=== PATIENT | male | born 1990 | race Two or more races ===

== ENCOUNTER 2024-06-17 11:27 | Outpatient (REF) | payer OTHER, SELFPAY ==
[2024-06-17 12:54] LABS: MANUAL DIFF FLAG NO
--- OUTSIDE RECORDS SUMMARY | 2024-06-17 12:59 | XMS_ITS | Encounter Summary ---
Author Organization [facility] Address [address] [place] [address] Phone Care Team Providers Care Fabric And Accessories Estimator Name Role Phone Martha Diaz MD Primary Care Provider Encounter Details Date Type Department Care Team (Late st Contact Info) Description 10/21/2015 Documentation [facility] [place] Family Medicine [address] [place] [address] Family Medicine, Physician [address] [place], [place] [id number] Social History Tobacco Use Types Packs/Day Years [...] on filedocumented in this encounter Care Teams Fabric And Accessories Estimator Relationship Specialty Start Date End Date Martha Diaz MD [address] [place] [address] NATASHA Hinton [address] PCP - General 09/16/16 05/24/22 documented as of this encounter
--- OUTSIDE RECORDS SUMMARY | 2024-06-17 12:59 | XMS_ITS | Encounter Summary ---
Author Organization [facility] Address [address] [place] [address] Phone Care Team Providers Care Director Of Oncology Name Role Phone Martha Diaz MD Primary Care Provider Encounter Details Date Type Department Care Team (Late st Contact Info) Description 12/08/2016 Conversion Encounter [facility] [place] [address] [place] [address] Social History Tobacco Use Types Packs/Day Years [...] on filedocumented in this encounter Care Teams Director Of Oncology Relationship Specialty Start Date End Date Martha Diaz MD [address] [place] [address] PCP - General 09/16/16 05/24/22 documented as of this encounter
--- OUTSIDE RECORDS SUMMARY | 2024-06-17 12:59 | XMS_ITS | Clinical Summary ---
Author Organization [facility] Address [address] [place] [phone] Phone Care Team Providers Care Ship Scraper Name Role Phone Unavailable Primary Care Provider [...]
[2024-06-17 13:46] LABS: Basophils Percent Auto 0.5 % (0-2); Eosinophils Absolute Auto 0.2 X10*3/uL (0.0-0.4); Eosinophils Percent Auto 2.5 % (0-4); Hemoglobin 16.2 g/dl (14.0-18.0); Imm Gran Abs Auto 0.06 X10*3/uL (0.00-0.03); Imm Gran Pct Auto 0.8 % (0.0-0.4); Lymphocytes Absolute Auto 2.1 X10*3/uL (1.2-4.9); Lymphocytes Percent Auto 26.1 % (20-40); Mean Corpuscular HGB Conc 33.8 g/dl (31.0-36.0); Mean Corpuscular Hemoglobin 29.8 pg (27.0-33.0); Mean Corpuscular Volume 88.4 fL (80.0-98.0); Mean Platelet Volume 10.3 fL (9.4-12.4); Monocytes Absolute Auto 0.6 X10*3/uL (0.1-1.2); Neutrophils Absolute Auto 4.9 x10*3/uL (2.0-8.3); Neutrophils Percent Auto 62.1 % (45-73); Platelet Count 271 X10*3/uL (160-400); Red Blood Count 5.43 X10*6/uL (4.60-5.80); Red Cell Distribution Width 11.9 % (11.0-16.0)
[2024-06-17 13:56] LABS: Estimated Average Glucose 103 mg/dL; Hemoglobin A1c % 5.2 % (<6.0)
[2024-06-17 14:11] LABS: Appearance Urine Clear; Color Urine Dark Yellow; Glucose Urine UA Negative (Negative); Leukocyte Esterase Urine Negative (Negative); Nitrite Urine Negative (Negative); Specific Gravity - Urine 1.025 (1.005-1.025); Urine Blood Negative (Negative); Urine Ketones Trace mg/dL (Negative); Urine Protein Trace mg/dL (Neg-Trace)
[2024-06-17 14:48] LABS: Alanine Aminotransferase 176 U/L (0-40); Alkaline Phosphatase 65 U/L (39-117); Anion Gap 13 (12-20); Aspartate Amino Transferase 69 U/L (5-37); Bilirubin Total 0.8 mg/dL (0.0-1.0); Blood Urea Nitrogen 16 mg/dL (9-16); Calcium 9.9 mg/dL (8.4-10.2); Carbon Dioxide 28 mmol/L (22-29); Chloride 103 mmol/L (96-108); Cholesterol 257 mg/dL (<200); Estimated Glomerular Filt Rate > 60; Glucose Fasting 105 mg/dL (60-99); HDL Cholesterol 44 mg/dL (>40); LDL Cholesterol Calculated 147 mg/dL (<100); Potassium 4.2 mmol/L (3.3-5.1); Sodium 140 mmol/L (135-145); TSH reflex Free T4 1.11 uIU/mL (0.32-4.0); Total Protein 8.1 g/dL (6.5-8.0); Triglycerides 330 mg/dL (<150); Vitamin D 25-OH Total 9.3 ng/mL (>30)
== END 2024-06-17 11:28 | disposition home or self-care (01) ==
LOC: HO.LAB 11:27
DX: G51.0 Bell's palsy (principal); R74.8 Abnormal levels of other serum enzymes; E78.2 Mixed hyperlipidemia; E55.9 Vitamin D deficiency, unspecified; Z00.00 Encounter for general adult medical examination without abnormal findings
CPT/HCPCS: 36415; 80053; 80061; 81003; 82306; 83036; 84443; 85025; 96127; 99202

== ENCOUNTER 2024-06-17 11:27 | Outpatient (AMB) | payer OTHER, SELFPAY ==
--- NOTE | 2024-06-17 11:35 | MHC.PC.OV ---
Vital Signs 06/17/24 11:36 Height 5 ft 6.93 in Weight 154 lb 8 oz BMI 24.2 BP 124/82 Blood Pressure Location Lt brachial Position Sitting Pulse 96 Pulse Source Pulse Oximeter Temp 97.1 F Temp Source Temporal Artery Scan Pulse Oximetry (%) 97 Oxygen Delivery Method Room Air Intake Visit Reasons: establish care Intake Note: Patient is a new patient here to establish care for Cody palsy. Transferring care from Dr Genao([facility]). Medical records have been requested and have received. Electrical Sign Wirer Required: No Green Building Materials Distributor: Present Accompanied by: Mother Allergies aspirin [ASPIRIN] Allergy (Unknown, Verified 06/17/24 11:51) UNKNOWN Medication List - Last Reconciled 06/17/24 by BELLA Roberts No Known Home Meds Tobacco use date assessed: 06/17/24 Dental Screening Dental Screen Date: 06/17/24 Did you have a dental visit in the last 12 months?: No Did you have a dental problem in the last 6 months where you did not have access to dental care?: No Was dental information given to patient?: Patient has dentist HPI establish care HPI Details The [facility] is 33 [facility] used to see Dr. Genao, 12/2021 The patient is a 33-year-old male presenting with facial nerve dysfunction. Approximately two weeks ago, following a diagnosis of Cody's Palsy, the patient reported an initial headache on one side which evolved into facial numbness and weakness, most notably affecting the left side of the face. The onset was sudden over a weekend and involved tongue numbness upon waking. The treatment regimen at [facility] comprise 60 mg of prednisone daily for seven days, but the patient still experiences discomfort. The mouth droop persists, especially on the left side, with a constant pain pattern worse in the morning . The patient can close his left eye better now, though numbness and a tingling sensation remain predominant complaints. No preceding viral infection has been identified, and swallowing and eating remain unaffected. There is no motor weakness beyond the facial and neck region. Generalized labs ordered since the patient has not have an annual physical in a while Reports that he does not want to be booked for any follow up appt. Reports that he will call if he needs anything. Patient was able to complete labs right after the appointment, which was reviewed with the patient Noted elevated liver enzymes, elevated triglycerides, total cholesterol, and LDL and vitamin-D deficiency. The patient continues to denies abdominal pain and reports that his liver enzymes elevation might be due to his increased Tylenol use during his incident of Cody's palsy He will stop taking the medication and cut back on foods high in cholesterol and start taking a vitamin-D 3 supplement 2000 IU as recommended Discussed with the patient that reordered labs were placed for him to complete in 3 months and he will need to have an appointment in 3 months to follow up [facility] Medical History Physical exam Surgical History No pertinent past surgical history Family History Mother Diabetes Father No problems noted. Social History Housing: House Alcohol intake: former Patient Tobacco Use Status: Former Tobacco user Tobacco use type: Cigarette e-Cigarette/Vaping Use: Former Use Second Hand Smoke Exposure: Yes service: No Current occupational status: unemployed Cognitive needs: No Hearing needs: No Vision needs: Yes (Glasses) Questionnaire PHQ-9 Over the last 2 weeks, how often have you been bothered by any of the following problems? 1. Little interest or pleasure in doing things: not at all 2. Feeling down, depressed, or hopeless: not at all 3. Trouble falling or staying asleep, or sleeping too much: not at all 4. Feeling tired or having little energy: not at all 5. Poor appetite or overeating: not at all 6. Feeling bad about yourself - or that you are a failure or have let yourself or your family down: not at all 7. Trouble concentrating on things, such as reading the newspaper or watching television: not at all 8. Moving or speaking so slowly that other people could have noticed. Or the opposite - being so fidgety or restless that you have been moving around a lot more than usual: not at all 9. Thoughts that you would be better off or of hurting yourself in some way: not at all Total score: 0 Depression Screening Interpretation: Negative Depression Screening Done: Yes 83914 - PHQ-9 Billing: Yes Source: Developed by Drs. Jean Rivero, David De Luna and colleagues, with an educational ru from [employer]. Thrive Questionnaire Date Thrive assessed: 06/17/24 I am a: Patient What is your living situation today?: I have a steady place to live Within the past 12 months, did the food you bought not last and you didn't have the money to get more?: Never true Within the past 12 months, did you worry whether your food would run out before you got money to buy more?: Never true Do you have trouble paying for medicines?: No Do you have trouble getting transportation to medical appointments?: No Do you have trouble paying your heating and electricity bill?: No Do you have trouble taking care of your child, family member or friend?: No Do you have trouble with day-to-day activities such as bathing, preparing meals, shopping, managing finances, etc.?: No Are you currently unemployed and looking for a job?: Yes Are you interested in more education?: No Please select the resources that you would like help with: None Currently or been in a relationship where the following occur: I choose not to answer THRIVE Score: 0 AUDIT C Alcohol Use Questionnaire (AUDIT-C) 1. How often do you have a drink containing alcohol?: Never Total Score: 0 ANIL-7 AMB Questionnaire ANIL-7 Date ANIL - 7 assessed: 06/17/24 Feeling nervous, anxious, or on edge: 0 = Not at all Not being able to stop or control worryin = Not at all Worrying too much about different things: 0 = Not at all Trouble relaxin = Not at all Being so restless that it is hard to sit still: 0 = Not at all Becoming easily annoyed or irritable: 0 = Not at all Feeling afraid as if something awful might happen: 0 = Not at all Total ANIL-7 score (0-4 normal; 5-9 mild; 10-14 moderate; 15-21 severe): 0 Source: Developed by Elizabeth Gomez Kurt Kroenke and colleagues, with an educational ru from [employer]. ANIL-7 Assessment Billing ANIL-7 Assessment Tool: ANIL-7 Assessment 82422 Review of Systems Const Details: - Neurological: Reports left-sided facial droop, persistent numbness, and tingling. Denies other limb weakness. - Ear/Nose/Throat: Reports headache and localized ear-area discomfort on the left side. - Musculoskeletal: Reports pain below the left eye and in the neck region. - Gastrointestinal: Denies difficulty swallowing or eating. - Dermatological: Denies any rash or skin changes. Reports headache(s) (Left side of head, behind left ear) Eyes Denies loss of vision ENT Denies vertigo, Denies dizziness, Reports otalgia, Reports headache(s) (Left side of head, behind left ear) and Denies sore throat Card Denies chest pain, Denies leg edema and Denies lightheadedness Resp Denies cough, Denies hemoptysis and Denies wheezing GI Denies abdominal pain, Denies melena, Denies constipation, Denies diarrhea and Denies vomiting Denies dysuria, Denies urinary frequency and Denies urinary urgency Musc Denies arthralgias, Denies joint swelling, Reports numbness (Left side of face) and Reports tingling (Left side of face) Neuro Denies Abnormal speech present, Denies behavioral changes, Denies vertigo, Denies dizziness, Reports headache(s) (Left side of head, behind left ear), Reports focal weakness (Left mouth drooping), Denies loss of vision, Denies memory loss, Reports numbness (Left side of face) and Reports tingling (Left side of face) Psych Denies anxiety, Denies behavioral changes, Denies depression, Denies memory loss and Denies panic attacks Fabricio/Lymph Denies easy bleeding and Denies easy bruising Aller/Immun Denies wheezing Physical exam (Primary Care) Vital Signs: Last Vital Signs Temp 97.1 F 06/17/24 11:36 Pulse 96 06/17/24 11:36 BP 124/82 06/17/24 11:36 Pulse Ox 97 06/17/24 11:36 Oxygen Delivery Method Room Air 06/17/24 11:36 BMI result Body Mass Index 24.2 Tobacco/Smoking Status: Tobacco use Status Tobacco use date assessed 06/17/24 06/17/24 11:46 Patient Tobacco Use Status Former Tobacco user 06/17/24 11:46 Tobacco use type Cigarette 06/17/24 11:46 e-Cigarette/Vaping Use Former Use 06/17/24 11:46 PHQ-9: PHQ-9 Score PHQ-9: Total score 0 06/17/24 12:19 Depression Screening Interpretation: Negative Thrive Assessment: Date of Thrive Assessment Date Thrive assessed 06/17/24 06/17/24 11:46 Currently or been in a relationship where the following occur: I choose not to answer Const General: healthy appearing, no acute distress, alert and awake Nutritional Appearance: well nourished Orientation/consciousness: oriented to person, oriented to place and oriented to time HENMT Ears: TM's normal bilaterally General nose exam: Normal nasal mucous membranes and turbinates present Eyes Conjunctivae: conjunctivae normal Sclerae: sclerae normal Pupils: Equal, round and reactive pupils present Neck Neck: Yes no lymphadenopathy and Yes no JVD Thyroid: Thyroid normal Carotids: no bruits Resp Effort & Inspection: normal respiratory effort and not tachypneic Auscultation: no crackles, no rales, no rhonchi and no wheezes Cardio Rate: regular rate Rhythm: regular rhythm Heart sounds: no murmurs and normal S1 and S2 GI Palpation (GI): Soft to palpation, nontender, no hepatomegaly and no splenomegaly Auscultation: normal bowel sounds Skin General skin exam: no rashes or lesions noted and dry skin Neuro General: oriented to person, oriented to place, oriented to time and gait normal Cranial nerves: Yes Equal, round and reactive pupils present, No Normal facial strength present (Left mouth droop) and Yes Midline tongue present Speech: No Abnormal speech present Gait exam (Neuro): Normal gait present Motor exam (neuro): no tremor noted Extrem Right upper extremity: full ROM Left upper extremity: full ROM Right lower extremity: full ROM; no edema Left lower extremity: full ROM; no edema Psych Mental Status: mental status grossly normal Speech and movement: Normal speech and movement present Affect: normal affect Attitude: cooperative Thought process: Normal thought process present Results Reviewed Results Reviewed: Laboratory Tests 06/17/24 06/17/24 12:47 12:48 WBC 8.0 RBC 5.43 Hgb 16.2 Hct 48.0 MCV 88.4 MCH 29.8 MCHC 33.8 RDW 11.9 Plt Count 271 Sodium 140 Potassium 4.2 Chloride 103 Carbon Dioxide 28 Anion Gap 13 BUN 16 Creatinine 0.79 Estimated GFR > 60 Fasting Glucose 105 H Hemoglobin A1c % 5.2 Calcium 9.9 Total Bilirubin 0.8 AST 69 H ALT 176 H Alkaline Phosphatase 65 Total Protein 8.1 H Triglycerides 330 H Cholesterol 257 H LDL Cholesterol, Calc 147 H HDL Cholesterol 44 25-OH Vitamin D Total 9.3 L TSH 1.11 Urine Color Dark Yellow Urine Appearance Clear Urine pH 5.0 Ur Specific [place] 1.025 Urine Protein Trace Urine Glucose (UA) Negative Urine Ketones Trace Urine Blood Negative Urine Nitrite Negative Ur Leukocyte Esterase Negative Coding Level of Care Code New Pt Level 4 (42424) Diagnoses Cody's palsy G51.0 Elevated liver enzymes R74.8 Mixed hypercholesterolemia and hypertriglyceridemia E78.2 Vitamin D deficiency E55.9 Additional Codes PHQ-9 - 50137 - PHQ-9 Billing: Yes ([id number]) ANIL-7 Assessment Billing - ANIL-7 Assessment Tool: ANIL-7 Assessment 20232 ([id number]) Time Spent (min) 41 Assessment & Plan Assessment & Plan (1) Cody's palsy: Code(s): G51.0 - Cody's palsy Category: Medical Plan: Patient was treated with 60 mg of prednisone x7 days. Reports improvement still has some numbness and tingling on the left side of face and a mouth droop. Discussed with the patient that these symptoms sometimes could take up to few months to completely resolve (2) Elevated liver enzymes: Code(s): R74.8 - Abnormal levels of other serum enzymes Category: Medical Plan: AST 69 and ALT 176. The patient denies drinking alcohol and reports that the only thing he has been taking his Tylenol for pain. Denies abdominal pain or any history of liver disease. The patient cholesterol is also elevated which might be a contributing factor. The patient we will stopped taking the Tylenol and cut back on foods high in cholesterol cholesterol. We will recheck labs in 3 months (3) Mixed hypercholesterolemia and hypertriglyceridemia: Code(s): E78.2 - Mixed hyperlipidemia Category: Medical Plan: Triglycerides 330, total cholesterol 257, LDL 147 and HDL 44 Reinforced a diet low in cholesterol/carbohydrate/fats and activity as tolerated We will recheck lipid panel in 3 months (4) Vitamin D deficiency: Code(s): E55.9 - Vitamin D deficiency, unspecified Category: Medical Plan: Start vitamin D3 2000 IU OTC daily Plan Follow up in 3 months, recheck labs prior to appointment Orders: Orders Complete Blood Count Auto Diff Today Z00.00 - Encounter for general adult medical examination without abnormal findings Lipid Panel Today Z00.00 - Encounter for general adult medical examination without abnormal findings UA CC w/rflx Micro + Cult Today Z00.00 - Encounter for general adult medical examination without abnormal findings Comprehensive [place]. Panel Fast 3 Months E55.9 - Vitamin D deficiency, unspecified, E78.2 - Mixed hyperlipidemia, R74.8 - Abnormal levels of other serum enzymes Vitamin D 25-OH Total 3 Months E55.9 - Vitamin D deficiency, unspecified, E78.2 - Mixed hyperlipidemia, R74.8 - Abnormal levels of other serum enzymes Comprehensive [place]. Panel Fast Today Z00.00 - Encounter for general adult medical examination without abnormal findings TSH reflex Free T4 Today Z00.00 - Encounter for general adult medical examination without abnormal findings Vitamin D 25-OH Total Today Z00.00 - Encounter for general adult medical examination without abnormal findings Hemoglobin A1c Today Z00.00 - Encounter for general adult medical examination without abnormal findings Lipid Panel 3 Months E55.9 - Vitamin D deficiency, unspecified, E78.2 - Mixed hyperlipidemia, R74.8 - Abnormal levels of other serum enzymes TSH reflex Free T4 3 Months E55.9 - Vitamin D deficiency, unspecified, E78.2 - Mixed hyperlipidemia, R74.8 - Abnormal levels of other serum enzymes UA CC w/rflx Micro + Cult 3 Months E55.9 - Vitamin D deficiency, unspecified, E78.2 - Mixed hyperlipidemia, R74.8 - Abnormal levels of other serum enzymes
[2024-06-17 11:36] VITALS: BP 124/82; PULSE 96; TEMP 36.2; O2SAT 97; BMI 24.2
--- OUTSIDE RECORDS SUMMARY | 2024-06-17 12:16 | XMS_ITS | Encounter Summary ---
Author Organization [facility] Address [address] [place] [id number] Phone Care Team Providers Care Sock Knitter Name Role Phone Martha Diaz MD Primary Care Provider [phone] Encounter Details Date Type Department Care Team (Late st Contact Info) Description 10/21/2015 Documentation [facility] [place] [address] [place] [address] Family Medicine, Physician [address] [place], [place] [id number] Social History Tobacco Use Types Packs/Day Years Used Date Smoking Tobacco: Never Assessed Sex and Gender Information Value Date Recorded Sex Assigned at Not on file Legal Sex Male 4:28 PM EDT Gender Identity Not on file Sexual Orientation Not on file documented as of this encounter Plan of Treatment Not on file documented as of this encounter Visit Diagnoses Not on filedocumented in this encounter Care Teams Sock Knitter Relationship Specialty Start Date End Date Martha Diaz MD [address] [place] [address] NATASHA Hinton [id number] PCP - General 09/16/16 05/24/22 documented as of this encounter
--- OUTSIDE RECORDS SUMMARY | 2024-06-17 12:16 | XMS_ITS | Encounter Summary ---
Author Organization [facility] Address [address] [place] [address] Phone Care Team Providers Care Biophysics Professor Name Role Phone Martha Diaz MD Primary Care Provider Encounter Details Date Type Department Care Team (Late st Contact Info) Description 12/08/2016 Conversion Encounter [facility] [place] [address] [place] [address] Social History Tobacco Use Types Packs/Day Years [...] on filedocumented in this encounter Care Teams Biophysics Professor Relationship Specialty Start Date End Date Martha Diaz MD [address] [place] [address] PCP - General 09/16/16 05/24/22 documented as of this encounter
--- OUTSIDE RECORDS SUMMARY | 2024-06-17 12:16 | XMS_ITS | Clinical Summary ---
Author Organization [facility] Address [address] [place] [address] Phone Care Team Providers Care Seo Specialist Name Role Phone Unavailable Primary Care Provider Unavailabl e Immunizations Immunization Administration Dates Next Due DTP 12/06/1993, 2,05/06/1990,02/05,1989 H1N1 02/02/2009 Hib (PRP-T) 10/07/1991,11/05/1990 IPV 12/06/1993, 2,02/05/1990,12/06 Influenza, injectable, trivalent 12/30/2008,01/06 MMR 05/06/1993,11/05/1990 Meningococcal Conj (Menactra) MCV4P 12/23/2005 Td (adult) (MBL), 2 Lf tetan us toxoid, PF, adsorbed 04/13/2001 Tdap 09/04/2006 Unknown Vaccine 02/02/2006 Family History Relation Name Status Comments Brother Alive Brother: Alive and well Father Alive Father: Alive a nd well Mother Alive Mother: Asthma Sister Alive Sister: Alive a nd well Social History Tobacco Use Types Packs/Day Years Used Date Smoking Tobacco: Never Assessed Sex and Gender Information Value Date Recorded Sex Assigned at Not on file Legal Sex Male 4:28 PM EDT Gender Identity Not on file Sexual Orientation Not on file Plan of Treatment Health Maintenance Due Date Last Done Comments Varicella Vaccines (1 of 2 - 13+ 2-dose series) 2002 Hepatitis B Vaccines (1 of 3 - 19+ 3-dose series) 2008 DTaP,Tdap,and Td Vaccines (7 - Td or Tdap) 09/04/2016 09/04/2006, 04/13/2001, 12/06/1993, Additional history exists Influenza Vaccines (#1) 2023 12/30/2008, 01/17 COVID-19 Vaccine ( season) 2023 HIB Vaccines Completed 10/07/1991, 11/05/1990 MMR Vaccines Completed 05/06/1993, 11/05/1990 IPV Vaccines Completed 12/06/1993, 09/08, 02/05/1990, Additional history exists Meningococcal Vaccine Completed 12/23/2005 HPV Vaccines Aged Out No longer eligi ble based on patient's age to complete this topic Hepatitis A Vaccines Aged Out No long er eligible based on patient's age to complete this topic Men B Vaccine Aged Out No longer elig ible based on patient's age to complete this topic Pneumococcal Vaccine Aged Out No long er eligible based on patient's age to complete this topic
== END 2024-06-17 12:22 | disposition home or self-care (01) ==
LOC: HO.HMCH 11:27
DX: G51.0 Bell's palsy (principal); R74.8 Abnormal levels of other serum enzymes; E78.2 Mixed hyperlipidemia; E55.9 Vitamin D deficiency, unspecified

== ENCOUNTER 2024-10-08 13:48 | Outpatient (AMB) | payer OTHER, SELFPAY ==
[2024-10-08 13:50] VITALS: BP 108/72; PULSE 70; RESP 18; TEMP 36.3; O2SAT 98; BMI 25.9
--- NOTE | 2024-10-08 13:50 | MHC.PC.OV ---
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 Accompanied by: Self / Same As Patient Allergies aspirin (ASPIRIN) Allergy (Unknown, Verified 10/08/24 14:24) UNKNOWN Medication List - Last Reconciled 10/08/24 by BELLA Roberts No Known Home Meds Tobacco use date assessed: 10/08/24 Dental Screening Dental Screen Date: 06/17/24 Did you have a dental visit in the last 12 months?: No Did you have a dental problem in the last 6 months where you did not have access to dental care?: No Was dental information given to patient?: No HPI 3 month f/u HPI Details The patient is a 34-year-old male presenting for follow-up on hyperlipidemia and vitamin D deficiency. The patient has been monitoring his cholesterol levels and is concerned about elevated enzyme levels. He has been making dietary changes to improve his cholesterol levels, such as reducing intake of certain foods. The patient has been taking vitamin D supplements daily to address his deficiency. He reports that his symptoms have improved over the past month, with no pain or headaches currently experienced. 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 He acknowledges the potential stress-related triggers for his condition and is aware of the need to manage stress levels. The patient was recently diagnosed with Alleman Palsy, treated and has been symptoms free. Discussed plans to prevent increase stress which might cause the return of this disease. [facility] Medical History Physical exam Surgical History No pertinent past surgical history Family History Mother Diabetes Father No problems noted. Social History Housing: House Alcohol intake: former Patient Tobacco Use Status: Former Tobacco user Tobacco use type: Cigarette e-Cigarette/Vaping Use: Former Use Second Hand Smoke Exposure: Yes service: No Current occupational status: unemployed Cognitive needs: No Hearing needs: No Vision needs: Yes (Glasses) Questionnaire PHQ-9 Over the last 2 weeks, how often have you been bothered by any of the following problems? 1. Little interest or pleasure in doing things: not at all 2. Feeling down, depressed, or hopeless: not at all 3. Trouble falling or staying asleep, or sleeping too much: not at all 4. Feeling tired or having little energy: not at all 5. Poor appetite or overeating: not at all 6. Feeling bad about yourself - or that you are a failure or have let yourself or your family down: not at all 7. Trouble concentrating on things, such as reading the newspaper or watching television: not at all 8. Moving or speaking so slowly that other people could have noticed. Or the opposite - being so fidgety or restless that you have been moving around a lot more than usual: not at all 9. Thoughts that you would be better off or of hurting yourself in some way: not at all Total score: 0 Depression Screening Interpretation: Negative Depression Screening Done: Yes Source: Developed by Drs. Jean Rivero, Elizabeth Sigala, David Hernandez and colleagues, with an educational ru from [employer]. Thrive Questionnaire Date Thrive assessed: 10/08/24 I am a: Patient What is your living situation today?: I have a steady place to live Within the past 12 months, did the food you bought not last and you didn't have the money to get more?: Never true Within the past 12 months, did you worry whether your food would run out before you got money to buy more?: Never true Do you have trouble paying for medicines?: No Do you have trouble getting transportation to medical appointments?: No Do you have trouble paying your heating and electricity bill?: No Do you have trouble taking care of your child, family member or friend?: No Do you have trouble with day-to-day activities such as bathing, preparing meals, shopping, managing finances, etc.?: No Are you currently unemployed and looking for a job?: Yes Are you interested in more education?: No Please select the resources that you would like help with: None Currently or been in a relationship where the following occur: I choose not to answer THRIVE Score: 0 AUDIT C Alcohol Use Questionnaire (AUDIT-C) 1. How often do you have a drink containing alcohol?: Never Total Score: 0 ANIL-7 AMB Questionnaire ANIL-7 Date ANIL - 7 assessed: 10/08/24 Feeling nervous, anxious, or on edge: 0 = Not at all Not being able to stop or control worryin = Not at all Worrying too much about different things: 0 = Not at all Trouble relaxin = Not at all Being so restless that it is hard to sit still: 0 = Not at all Becoming easily annoyed or irritable: 0 = Not at all Feeling afraid as if something awful might happen: 0 = Not at all Total ANIL-7 score (0-4 normal; 5-9 mild; 10-14 moderate; 15-21 severe): 0 Source: Developed by Drs. Jean Rivero, Elizabeth Sigala, David Hernandez and colleagues, with an educational ru from [employer]. Review of Systems Const Denies body aches, Denies chills, Denies fever(s), Denies headache(s) and Denies poor appetite Eyes Reports no additional complaints ENT Denies dysphagia, Denies dizziness, Denies headache(s) and Denies odynophagia Card Denies chest pain, Denies syncope, Denies edema, Denies irregular heart rhythm, Denies lightheadedness and Denies dyspnea Resp Denies cough and Denies dyspnea GI Denies abdominal pain, Denies constipation, Denies dysphagia, Denies diarrhea, Denies nausea, Denies odynophagia and Denies vomiting Reports no additional complaints Musc Reports no additional complaints and Denies abnormal gait Skin/Breast Reports system reviewed and no additional complaints, except as documented Neuro Denies abnormal gait, Denies dizziness, Denies syncope and Denies headache(s) Psych Reports no additional complaints Physical exam (Primary Care) Vital Signs: Last Vital Signs Temp 97.3 F 10/08/24 13:50 Pulse 70 10/08/24 13:50 Resp 18 10/08/24 13:50 BP 108/72 10/08/24 13:50 Pulse Ox 98 10/08/24 13:50 Oxygen Delivery Method Room Air 10/08/24 13:50 BMI result Body Mass Index 25.9 Tobacco/Smoking Status: Tobacco use Status Tobacco use date assessed 10/08/24 10/08/24 13:55 Patient Tobacco Use Status Former Tobacco user 10/08/24 13:55 Tobacco use type Cigarette 10/08/24 13:55 e-Cigarette/Vaping Use Former Use 10/08/24 13:55 PHQ-9: PHQ-9 Score PHQ-9: Total score 0 10/08/24 14:30 Depression Screening Interpretation: Negative Thrive Assessment: Date of Thrive Assessment Date Thrive assessed 10/08/24 10/08/24 13:55 Currently or been in a relationship where the following occur: I choose not to answer Const General: cooperative, healthy appearing, comfortable and no acute distress Orientation/consciousness: patient oriented x3 HENMT Head: Yes normocephalic Ears: hearing grossly normal bilaterally General nose exam: Normal external nose present Eyes General: appearance normal, both eyes and all related structures Conjunctivae: conjunctivae normal Neck Neck: Yes full ROM and Yes no lymphadenopathy Resp Effort & Inspection: normal respiratory effort Auscultation: clear to auscultation bilaterally, no crackles, no rales, no rhonchi and no wheezes Cardio Rate: regular rate Rhythm: regular rhythm Skin General skin exam: no rashes or lesions noted Neuro General: patient oriented x3 Gait exam (Neuro): Normal gait present Extrem General: Yes normal to inspection, Yes full ROM and No edema Psych Affect: normal affect Attitude: cooperative Insight: Good insight present (Psych) Judgement: Good judgement present (Psych) Coding Level of Care Code Est Pt Level 3 (52785) Diagnoses Mixed hypercholesterolemia and hypertriglyceridemia E78.2 Vitamin D deficiency E55.9 Elevated liver enzymes R74.8 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 Hyperlipidemia The patient is advised to continue dietary modifications to manage hyperlipidemia and to complete fasting blood work to assess current cholesterol levels. Follow-up is scheduled in three months to evaluate progress and adjust treatment as necessary. 2. Vitamin D Deficiency The patient is instructed to continue daily vitamin D supplementation and to complete blood work to monitor levels. 3. Substance Use: Thc The patient is advised to consider smoking cessation for THC use and to manage stress levels to prevent potential triggers for his condition.
--- OUTSIDE RECORDS SUMMARY | 2024-10-08 15:03 | XMS_ITS | Encounter Summary ---
Author Organization [facility] Address [address] [place] [id number] Phone Care Team Providers Care Herb Doctor Name Role Phone Martha Diaz MD Primary Care Provider Encounter Details Date Type Department Care Team (Late st Contact Info) Description 10/21/2015 Documentation [facility] [address] [place] [address] Family Medicine, Physician [address] [place], [place] [id number] Social History Tobacco Use Types Packs/Day Years [...] on filedocumented in this encounter Care Teams Herb Doctor Relationship Specialty Start Date End Date Martha Diaz MD [address] [place] [address] NATASHA Hinton [id number] PCP - General 09/16/16 05/24/22 documented as of this encounter
--- OUTSIDE RECORDS SUMMARY | 2024-10-08 15:03 | XMS_ITS | Encounter Summary ---
Author Organization [facility] Address [address] [place] [address] Phone Care Team Providers Care Market Research Worker Name Role Phone Martha Diaz MD Primary Care Provider Encounter Details Date Type Department Care Team (Late st Contact Info) Description 12/08/2016 Conversion Encounter [facility] [address] [place] [address] Social History Tobacco Use Types Packs/Day Years [...] on filedocumented in this encounter Care Teams Market Research Worker Relationship Specialty Start Date End Date Martha Diaz MD [address] [place] [address] PCP - General 09/16/16 05/24/22 documented as of this encounter
--- OUTSIDE RECORDS SUMMARY | 2024-10-08 15:03 | XMS_ITS | Clinical Summary ---
Author Organization [facility] Address [address] [place] [phone] Phone Care Team Providers Care Bowling Pin Refinisher Name Role Phone Unavailable Primary Care Provider [...] Health Maintenance Due Date Last Done Comments Hepatitis B Vaccines (1 of 3 - 19+ 3-dose series) 2008 Varicella Vaccines (1 of 2 - 13+ 2-dose series) 03/02/2009 DTaP,Tdap,and Td Vaccines (7 - Td or Tdap) 09/04/2016 09/04/2006, 04/13/2001, 12/06/1993, Additional history exists HPV Vaccines (1 - 3-dose SCDM series) 2016 Influenza Vaccines (#1) 2024 12/30/2008, 01/17 COVID-19 Vaccine ( season) 2024 HIB Vaccines Completed 10/07/1991, 11/05/1990 MMR Vaccines Completed 05/06/1993, 11/05/1990 IPV Vaccines Completed 12/06/1993, 09/08, 02/05/1990, Additional history exists Meningococcal Vaccine Completed 12/23/2005 Hepatitis A Vaccines Aged Out No long er eligible based on patient's age to complete this topic Men B Vaccine Aged Out No longer elig ible based on patient's age to complete this topic Pneumococcal Vaccine Aged Out No long er eligible based on patient's age to complete this topic
== END 2024-10-08 14:32 | disposition home or self-care (01) ==
LOC: HO.HMCH 13:49
DX: E78.2 Mixed hyperlipidemia (principal); E55.9 Vitamin D deficiency, unspecified; R74.8 Abnormal levels of other serum enzymes; G51.0 Bell's palsy

== ENCOUNTER → 2024-10-08 13:48 | Outpatient (BNVA) | payer OTHER, SELFPAY | DX: E78.2 Mixed hyperlipidemia (principal); E55.9 Vitamin D deficiency, unspecified; E78.5 Hyperlipidemia, unspecified; R74.8 Abnormal levels of other serum enzymes; G51.0 Bell's palsy | CPT/HCPCS: 99212 ==

== ENCOUNTER 2024-10-12 07:30 | Outpatient (REF) | payer OTHER, SELFPAY ==
[2024-10-12 08:52] LABS: Alanine Aminotransferase 132 U/L (0-40); Albumin Level 4.8 g/dL (3.5-5.0); Alkaline Phosphatase 70 U/L (39-117); Anion Gap 14 (12-20); Aspartate Amino Transferase 52 U/L (5-37); Blood Urea Nitrogen 12 mg/dL (9-16); Calcium 9.3 mg/dL (8.4-10.2); Carbon Dioxide 28 mmol/L (22-29); Chloride 104 mmol/L (96-108); Cholesterol 202 mg/dL (<200); Estimated Glomerular Filt Rate > 60; HDL Cholesterol 41 mg/dL (>40); Potassium 4.2 mmol/L (3.3-5.1); Sodium 142 mmol/L (135-145); Total Protein 7.8 g/dL (6.5-8.0); Triglycerides 325 mg/dL (<150)
[2024-10-12 10:35] LABS: Appearance Urine Clear; Glucose Urine UA Negative (Negative); PH 5.5 (5.0-9.0); Specific Gravity - Urine 1.025 (1.005-1.025)
== END 2024-10-12 07:31 | disposition home or self-care (01) ==
LOC: HO.LAB 07:30
DX: E78.2 Mixed hyperlipidemia (principal); E55.9 Vitamin D deficiency, unspecified; R74.8 Abnormal levels of other serum enzymes
CPT/HCPCS: 36415; 80053; 80061; 81003; 82306; 84443

== ENCOUNTER 2024-12-07 09:31 | Outpatient (REF) | payer SELFPAY ==
[2024-12-07 11:12] LABS: Iron 132 mcg/dL (45-160); Percent Iron Saturation 36 % (15-50); Total Iron Binding Capacity 369 mcg/dL (228-428); Unsaturated Iron Binding 237 ug/dL
[2024-12-07 11:32] LABS: HBS Num1 0.48 mIU/mL (0-7.99); HBc Num1 0.08 S/CO (0.00-0.79); HBsAGNum1 0.30 S/CO (0.00-0.99); Hepatitis A Antibody IgM 0.19 Index (0-0.79); Hepatitis B Surface Antigen Negative (Negative); ~HepC Num1 0.06 S/CO (0.00-0.79); ~Hepatitis A Antibody IgM Nonreactive (Nonreactive); ~Hepatitis B Surface Antibody NONREACTIVE (Nonreactive); ~Hepatitis C Antibody Nonreactive (Nonreactive)
[2024-12-09 19:19] LABS: Transferrin 334 mg/dL (188-341)
[2024-12-13 11:03] LABS: Anti Nuclear Antibody Screen NEGATIVE (NEGATIVE)
== END 2024-12-07 09:32 | disposition home or self-care (01) ==
LOC: HO.LAB 09:31
DX: Z01.84 Encounter for antibody response examination (principal); R74.8 Abnormal levels of other serum enzymes
CPT/HCPCS: 36415; 82390; 83540; 84466; 85652; 86015; 86038; 86141; 86704; 86706; 86709; 86803; 87340